=== PATIENT | female | born 1995 | race Caucasian/White ===

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

== ENCOUNTER 2017-05-11 21:57 | Emergency (ER) | payer BC, OTHER ==
--- NOTE | 2017-05-11 22:21 | ED Physician Documentation ---
PD HPI HEADACHE - Stated complaint Stated Complaint: MIGRAINE - Chief complaint Chief Complaint: Neuro - History obtained from History obtained from: Patient - History of Present Illness Timing - onset: How many days ago (6) Timing - onset during: Light activity Timing - duration: Days (6) Timing - details: Gradual onset Worst headache ever?: No: Worst headache ever? (she says she gets presumed migraines about twice per month for which she takes OTC meds and waits it out, with symptoms usually about a day. She says the current headache had onset like others, but has just lasted longer and now at 6 days.) Location: Front, Global Quality: Throbbing, Aching Associated symptoms: Nausea, Vomiting. No: Fever, Stiff neck, Weakness, Numbness, Vision changes Improved by: Rest. No: Meds Worsened by: Light, Noise Contributing factors: No: Possible carbon monoxide, Hypertension, Recent illness , Trauma Similar symptoms before: Diagnosis (presumed migraines) Review of Systems Constitutional: denies: Fever, Chills, Myalgias Nose: denies: Rhinorrhea / runny nose, Congestion Throat: denies: Sore throat Cardiac: denies: Chest pain / pressure Respiratory: denies: Cough GI: reports: Nausea, Vomiting. denies: Abdominal Pain, Constipation : denies: Dysuria, Frequency Skin: denies: Rash, Lesions Neurologic: denies: Focal weakness, Numbness, Near syncope PD PAST MEDICAL HISTORY - Past Medical History Cardiovascular: None Respiratory: None Neuro: None Endocrine/Autoimmune: None - Past Surgical History Past Surgical History: Yes HEENT: Myringotomy (tubes) - Present Medications Home Medications: Ambulatory Orders Medication Instructions Recorded Confirmed Bcp 07/18/16 Famotidine [Pepcid] 20 mg PO DAILY #20 tablet 07/18/16 Ondansetron Odt [Zofran] 4 mg TL Q6H PRN #10 tablet 07/18/16 Dexamethasone [Decadron] 4 mg PO DAILY #5 tablet 05/11/17 Promethazine [Phenergan] 25 mg PO Q6H PRN #20 tab 05/11/17 SUMAtriptan [Imitrex] 50 mg PO ONCE PRN #5 tablet 05/11/17 - Allergies Allergies/Adverse Reactions: Allergies Allergy/AdvReac Type Severity Reaction Status Date / Time No Known Drug Allergies Allergy Verified 05/11/17 22:06 - Social History Does the pt smoke?: No Smoking Status: Never smoker Does the pt drink ETOH?: No Does the pt have substance abuse?: No - Immunizations Immunizations are current?: Yes PD ED PE NORMAL - Vitals Vital signs reviewed: Yes - General General: Alert and oriented X 3, Well developed/nourished - HEENT HEENT: Atraumatic, PERRL (light sensitive. ), Ears normal, Pharynx benign. No: Moist mucous membranes - Neck Neck: Supple, no meningeal sign, No adenopathy - Cardiac Cardiac: RRR, No murmur - Respiratory Respiratory: Clear bilaterally - Abdomen Abdomen: Soft, Non tender - Derm Derm: Normal color, Warm and dry - Extremities Extremities: No tenderness to palpate, Normal ROM s pain - Neuro Neuro: Alert and oriented X 3, fishing captain 2-12 intact, No motor deficit, No sensory deficit, Normal speech, Other Results - Vitals Vitals: Vital Signs - 24 hr 05/11/17 05/11/17 22:03 23:55 Temperature 36.4 C L Heart Rate 87 77 Respiratory 18 18 Rate Blood Pressure 119/80 107/71 O2 Saturation 99 97 Oxygen O2 Source Room air PD MEDICAL DECISION MAKING - ED course Complexity details: re-evaluated patient (headache gone after IV fluids and meds , c/w migraine and dehydration. ), considered differential, d/w patient Departure - Departure Disposition: 01 Home, Self Care Clinical Impression: Headache Qualifiers: Headache type: other vascular headache Qualified Code(s): G44.1 - Vascular headache, not elsewhere classified Condition: Stable Record reviewed to determine appropriate education?: Yes Instructions: ED Headache Migraine Follow-Up: Angeles Muñiz PA-C [Primary Care Provider] - Prescriptions: Dexamethasone [Decadron] 4 mg PO DAILY #5 tablet Promethazine [Phenergan] 25 mg PO Q6H PRN #20 tab PRN Reason: Nausea / Vomiting SUMAtriptan [Imitrex] 50 mg PO ONCE PRN #5 tablet PRN Reason: Migraine Comments: Drink lots of fluids. Use promethazine if needed for nausea. Continue Decadron daily for 5 more days to try to prevent rebound of the migraine which can occur as medications wear off sometimes. For subsequent migraine type headaches, you can try the combination of an ibuprofen or aspirin along with the promethazine for nausea and an Imitrex tablet. See if these work for you to cease the headache within a half hour or so. Follow-up with your primary care. Discharge Date/Time: 05/11/17 23:59
[2017-05-11] MEDS ORDERED: DEXAMETHASONE 10 MG/ML VIAL IVP STA (22:34)
[2017-05-11] MEDS ORDERED: METOCLOPRAMIDE 10 MG/2 ML VIAL IVP STA (22:34)
[2017-05-11] MEDS ORDERED: KETOROLAC 60 MG/2 ML VIAL IVP STA (22:34)
[2017-05-11] MEDS ORDERED: diphenhydrAMINE INJ 50 MG/ML VIAL IVP STA (22:34)
[2017-05-11] MEDS ORDERED: ACETAMINOPHEN 1,000 MG/100 ML 100 ML IV STA (22:35)
[2017-05-11] MEDS ORDERED: SODIUM CHLORIDE 0.9% 1,000 ML IV ONE (22:36)
[2017-05-11 23:56] VITALS: BP 107/71
== END 2017-05-11 23:59 | disposition home or self-care (01) ==
LOC: ED 21:57
DX: G44.1 Vascular headache, not elsewhere classified (principal); R11.2 Nausea with vomiting, unspecified
CPT/HCPCS: 96365; 96375; 99283; J0131; J1200; J2765

== ENCOUNTER 2019-02-05 08:15 | Outpatient (CLI) | payer BC ==
[2019-02-05 20:43] LABS: CANDIDA GROUP DNA POSITIVE (NEGATIVE); CANDIDA KRUSEI DNA NEGATIVE (NEGATIVE); TRICHOMONAS VAGINALIS DNA NEGATIVE (NEGATIVE)
[2019-02-05 21:50] LABS: TRICHOMONAS VAGINALIS DNA NEGATIVE (NEGATIVE)
== END 2019-02-05 23:59 | disposition home or self-care (01) ==
LOC: LAB.R 08:15
PROVIDERS: ATTEND Nurse Practitioner Obstetrics & Gynecology
DX: Z11.3 Encounter for screening for infections with a predominantly sexual mode of transmission (principal); N76.0 Acute vaginitis
CPT/HCPCS: 87491; 87591; 87661; 87801

== ENCOUNTER 2019-05-06 12:08 | Outpatient (CLI) | payer BC ==
[2019-05-06 13:02] LABS: HCG,QUALITATIVE BLOOD NEGATIVE
== END 2019-05-06 12:09 | disposition home or self-care (01) ==
LOC: LAB 12:08
PROVIDERS: ATTEND Nurse Practitioner Family
DX: N93.9 Abnormal uterine and vaginal bleeding, unspecified (principal)
CPT/HCPCS: 36415; 84703

== ENCOUNTER 2019-05-26 11:10 | Emergency (ER) | payer BC ==
[2019-05-26 11:50] LABS: RAPID STREP SCREEN Negative (Negative)
--- NOTE | 2019-05-26 12:32 | ED Physician Documentation ---
PD HPI URI - Stated complaint Stated Complaint: SORE THROAT,RUNNY NOSE - Chief complaint Chief Complaint: Heent - History obtained from History obtained from: Patient - History of Present Illness Timing - onset: How many days ago (2-3) Timing duration: Days Timing details: Gradual onset Pain level max: 0 Pain level now: 0 Associated symptoms: Nasal congestion, Rhinorrhea, Sore throat, Dry cough (minimal). No: Fever Contributing factors: Sick contact (works at [employer]) Improves by: Rest Worsened by: Activity Recently seen: Not recently seen - Additional information Additional information: 23-year-old female states that she works at [employer]. She states that they told her to come to the emergency department and get a work note or else she would be fired for missing work. Review of Systems Constitutional: denies: Fever, Chills GI: denies: Vomiting : denies: Dysuria, Frequency, Hesitancy, Now EGA Skin: denies: Rash Musculoskeletal: denies: Neck pain, Back pain Neurologic: denies: Headache PD PAST MEDICAL HISTORY - Past Medical History Cardiovascular: None Respiratory: None Endocrine/Autoimmune: None - Past Surgical History Past Surgical History: Yes HEENT: Myringotomy (tubes) - Present Medications Home Medications: Ambulatory Orders Medication Instructions Recorded Confirmed Bcp 07/18/16 Famotidine [Pepcid] 20 mg PO DAILY #20 tablet 07/18/16 Ondansetron Odt [Zofran] 4 mg TL Q6H PRN #10 tablet 07/18/16 Promethazine [Phenergan] 25 mg PO Q6H PRN #20 tab 05/11/17 SUMAtriptan [Imitrex] 50 mg PO ONCE PRN #5 tablet 05/11/17 dexAMETHasone [Decadron] 4 mg PO DAILY #5 tablet 05/11/17 - Allergies Allergies/Adverse Reactions: Allergies Allergy/AdvReac Type Severity Reaction Status Date / Time No Known Drug Allergies Allergy Verified 05/26/19 11:24 - Social History Does the pt smoke?: No Smoking Status: Never smoker Does the pt drink ETOH?: No Does the pt have substance abuse?: No - Immunizations Immunizations are current?: Yes - POLST Patient has POLST: No PD ED PE NORMAL - Vitals Vital signs reviewed: Yes - General General: Alert and oriented X 3, No acute distress, Well developed/nourished - HEENT HEENT: Ears normal, Moist mucous membranes, Pharynx benign - Neck Neck: Supple, no meningeal sign, No adenopathy - Cardiac Cardiac: RRR - Respiratory Respiratory: No respiratory distress, Clear bilaterally - Abdomen Abdomen: Soft, Non tender, Non distended - Back Back: No CVA TTP - Derm Derm: Warm and dry - Extremities Extremities: No edema - Neuro Neuro: Alert and oriented X 3 - Psych Psych: Normal mood, Normal affect Results - Vitals Vitals: Vital Signs - 24 hr 05/26/19 11:24 Temperature 36.9 C Heart Rate 64 Respiratory 16 Rate Blood Pressure 124/69 O2 Saturation 99 Oxygen O2 Source Room air - Labs Labs: Laboratory Tests 05/26/19 11:30 Group A Strep Rapid Negative PD MEDICAL DECISION MAKING - ED course Complexity details: reviewed results, considered differential, d/w patient ED course: Patient is well-appearing, nontoxic. Afebrile. Negative strep test. No evidence of pneumonia. We will have her stay home until her symptoms have subsided. Patient counseled regarding signs and symptoms for which I believe and urgent re-evaluation would be necessary. Patient with good understanding of and agreement to plan and is comfortable going home at this time This document was made in part using voice recognition software. While efforts are made to proofread this document, sound alike and grammatical errors may occur. Departure - Departure Disposition: 01 Home, Self Care Clinical Impression: Viral URI Condition: Good Instructions: ED URI Viral Follow-Up: Medina Marin PA [Primary Care Provider] - As Needed Comments: Return if you worsen. Go home and rest. Forms: Activity restrictions
[2019-05-26 12:36] VITALS: BP 130/93
== END 2019-05-26 12:39 | disposition home or self-care (01) ==
LOC: ED 11:10
DX: J06.9 Acute upper respiratory infection, unspecified (principal)
CPT/HCPCS: 87070; 87430; 99282

== ENCOUNTER 2019-07-10 08:00 | Outpatient (CLI) | payer BC ==
[2019-07-10 21:05] LABS: CANDIDA GROUP DNA NEGATIVE (NEGATIVE); CANDIDA KRUSEI DNA NEGATIVE (NEGATIVE); TRICHOMONAS VAGINALIS DNA NEGATIVE (NEGATIVE)
[2019-07-10 21:39] LABS: TRICHOMONAS VAGINALIS DNA NEGATIVE (NEGATIVE)
== END 2019-07-10 08:01 | disposition home or self-care (01) ==
LOC: LAB.R 08:00
PROVIDERS: ATTEND Obstetrics & Gynecology
DX: N76.0 Acute vaginitis (principal); N93.9 Abnormal uterine and vaginal bleeding, unspecified
CPT/HCPCS: 36415; 81599; 84146; 84443; 86695; 86696; 87255; 87491; 87591; 87661; 87801

== ENCOUNTER 2019-07-10 08:00 | Outpatient (CLI) | payer BC ==
[2019-07-10 18:17] LABS: PROLACTIN 10.9 ng/mL
[2019-07-12 10:40] LABS: HSV 1 IGG TYPE SPECIFIC AB <0.90 index; HSV 2 IGG TYPE SPECIFIC AB <0.90 index
== END 2019-07-10 23:59 | disposition home or self-care (01) ==
LOC: LAB.WCP 08:00
PROVIDERS: ATTEND Obstetrics & Gynecology
DX: N93.9 Abnormal uterine and vaginal bleeding, unspecified (principal); N76.0 Acute vaginitis
CPT/HCPCS: 36415; 81599; 84146; 84443; 86695; 86696

== ENCOUNTER 2019-12-12 16:05 | Outpatient (CLI) | payer BC | END 2019-12-12 23:59 | disposition home or self-care (01) | LOC: LAB.WCP 16:05 | PROVIDERS: ATTEND Nurse Practitioner Obstetrics & Gynecology | DX: Z32.01 Encounter for pregnancy test, result positive (principal) | CPT/HCPCS: 36415; 84702 ==

== ENCOUNTER 2019-12-26 20:41 | Outpatient (CLI) | payer BC ==
--- NOTE | 2019-12-27 09:11 | Ultrasound Report ---
PROCEDURE: OB First Trimester INDICATIONS: PELVIC PAIN RT, TEST POSITIVE. HCG 500 OUTSIDE/PRIOR DATING DATA: Last menstrual period (LMP): Not available. LMP-based estimated date of delivery (BHASKAR): Not available. First dating scan (date and location): This study. Estimated gestational age) from first dating scan: A pole is not yet visualized. There is what appears to be a gestational sac, with a mean sac diameter of 7 mm which if this does in fact represen t a gestational sac would be correlated with the gestational age of 5 weeks 3 days, +/- 7 days.. TECHNIQUE: Real-time scanning was performed of the fetus and maternal pelvic organs, with image documentation. COMPARISON: None for this . FINDINGS: A small saclike structure is present within the endometrial canal, but a yolk sac and gest ational pole within is not seen. Therefore this does not definitely represent an intrauterine gestati on. If in fact it does represent a early intrauterine gestation that will progress over time the boone meter of this structure would correlate with a early first trimester gestation of only 5 weeks 3 days with a measurement variability of +/- 7 days. Embryo: Not seen. Measurement variability in dating: +/- 4 weeks by LMP, +/- 7 days by mean sac diameter (use before 6 weeks gestation if crown-rump length not able to be measured), +/- 5 days by crown-rump length (6-12 weeks gestation). Maternal organs: Ovaries normal. Limited images through the kidneys demonstrate no hydronephrosis. IMPRESSION: A definite viable intrauterine gestation is not yet established. A fluid-filled structure centrally w ithin the endometrial canal could represent a gestational sac and a very early phase of . Fo llow-up correlation with quantitative beta hCG is recommended. Follow-up OB ultrasound in 7-10 days w ould be recommended if there is evidence of a viable gestation. Reviewed by: Jean Marie Bustillo MD on 12/27/2019 9:10 AM PDT Approved by: Jean Marie Bustillo MD on 12/27/2019 9:10 AM PDT Station ID: [id number]
--- NOTE | 2019-12-27 09:15 | Ultrasound Report ---
PROCEDURE: OB Transvaginal INDICATIONS: RT PELVIC PAIN, + PREG TEST, HCG 500 TECHNIQUE: Both transabdominal and transvaginal scanning were performed. COMPARISON: None. FINDINGS: Please refer to the dedicated report under the title OB first trimester. IMPRESSION: The report for this examination is combined with the additional report from today, OB first trimester . Reviewed by: Jean Marie Bustillo MD on 12/27/2019 9:14 AM PDT Approved by: Jean Marie Bustillo MD on 12/27/2019 9:14 AM PDT Station ID: [id number]
== END 2019-12-26 20:42 | disposition home or self-care (01) ==
LOC: DI 20:41
PROVIDERS: ATTEND Physician Assistant
DX: R10.2 Pelvic and perineal pain (principal); Z32.01 Encounter for pregnancy test, result positive
CPT/HCPCS: 76801; 76817

== ENCOUNTER 2020-01-15 13:47 | Outpatient (CLI) | payer BC | END 2020-01-15 13:48 | disposition home or self-care (01) | LOC: LAB 13:47 | PROVIDERS: ATTEND Obstetrics & Gynecology | DX: O03.4 Incomplete spontaneous abortion without complication (principal); Z32.01 Encounter for pregnancy test, result positive | CPT/HCPCS: 36415; 84702; 86850; 86900; 86901 ==

== ENCOUNTER 2020-01-18 13:30 | Outpatient (CLI) | payer BC | END 2020-01-18 23:59 | disposition home or self-care (01) | LOC: LAB.WCP 13:30 | PROVIDERS: ATTEND Physician Assistant | DX: R10.2 Pelvic and perineal pain (principal); O03.9 Complete or unspecified spontaneous abortion without complication | CPT/HCPCS: 36415; 84702 ==

== ENCOUNTER 2020-01-29 14:59 | Outpatient (CLI) | payer BC | END 2020-01-29 15:00 | disposition home or self-care (01) | LOC: LAB 14:59 | PROVIDERS: ATTEND Obstetrics & Gynecology | DX: O03.4 Incomplete spontaneous abortion without complication (principal) | CPT/HCPCS: 36415; 84702 ==

== ENCOUNTER 2020-02-25 15:20 | Outpatient (CLI) | payer BC | END 2020-02-25 15:21 | disposition home or self-care (01) | LOC: LAB 15:20 | PROVIDERS: ATTEND Nurse Practitioner Obstetrics & Gynecology | DX: O03.4 Incomplete spontaneous abortion without complication (principal) | CPT/HCPCS: 36415; 84702 ==

== ENCOUNTER 2020-03-11 08:00 | Outpatient (CLI) | payer BC | END 2020-03-11 08:01 | disposition home or self-care (01) | LOC: LAB 08:00 | PROVIDERS: ATTEND Obstetrics & Gynecology | DX: O03.4 Incomplete spontaneous abortion without complication (principal) | CPT/HCPCS: 36415; 84702 ==

== ENCOUNTER 2020-03-21 08:00 | Outpatient (CLI) | payer BC ==
[2020-03-22 00:30] LABS: CANDIDA GROUP DNA POSITIVE (NEGATIVE); CANDIDA KRUSEI DNA NEGATIVE (NEGATIVE); TRICHOMONAS VAGINALIS DNA NEGATIVE (NEGATIVE)
== END 2020-03-21 23:59 | disposition home or self-care (01) ==
LOC: LAB.R 08:00
PROVIDERS: ATTEND Nurse Practitioner Obstetrics & Gynecology
DX: N76.0 Acute vaginitis (principal)
CPT/HCPCS: 87661; 87801

== ENCOUNTER 2020-08-21 07:00 | Outpatient (CLI) | payer BC ==
[2020-08-21 21:03] LABS: BACTERIAL VAGINOSIS DNA NEGATIVE (NEGATIVE); CANDIDA GLABRATA DNA NEGATIVE (NEGATIVE); CANDIDA GROUP DNA POSITIVE (NEGATIVE); CANDIDA KRUSEI DNA NEGATIVE (NEGATIVE); TRICHOMONAS VAGINALIS DNA NEGATIVE (NEGATIVE)
[2020-08-21 21:45] LABS: CHLAMYDIA TRACHOMATIS DNA NEGATIVE (NEGATIVE); NEISSERIA GONORRHOEAE DNA NEGATIVE (NEGATIVE); TRICHOMONAS VAGINALIS DNA NEGATIVE (NEGATIVE)
== END 2020-08-21 23:59 | disposition home or self-care (01) ==
LOC: LAB.N 07:00
PROVIDERS: ATTEND Physician Assistant Medical
DX: N76.0 Acute vaginitis (principal)
CPT/HCPCS: 87086; 87491; 87591; 87661; 87801

== ENCOUNTER 2020-09-23 16:42 | Outpatient (CLI) | payer BC ==
[2020-09-23 20:45] LABS: BASOPHILS # (AUTO) 0.1 10^3/uL (0.0-0.1); BASOPHILS % (AUTO) 0.8 %; EOSINOPHILS # (AUTO) 0.2 10^3/uL (0.0-0.7); EOSINOPHILS % (AUTO) 2.4 %; HGB - HEMOGLOBIN 14.2 g/dL (12.0-16.0); LYMPHOCYTES # (AUTO) 2.3 10^3/uL (1.5-3.5); LYMPHOCYTES % (AUTO) 25.9 %; MEAN CORPUSCULAR HEMOGLOBIN 32.3 pg (27.0-31.0); MEAN CORPUSCULAR HGB CONC 33.8 g/dL (32.0-36.0); MEAN CORPUSCULAR VOLUME 95.7 fL (81.0-99.0); MEAN PLATELET VOLUME 11.3 fL (7.9-10.8); MONOCYTES # (AUTO) 0.6 10^3/uL (0.0-1.0); MONOCYTES % (AUTO) 6.6 %; NEUTROPHILS # (AUTO) 5.7 10^3/uL (1.5-6.6); NEUTROPHILS % (AUTO) 63.7 %; PLT - PLATELET COUNT 222 10^3/uL (130-450); RED BLOOD COUNT 4.39 10^6/uL (4.20-5.40); RED CELL DISTRIBUTION WIDTH 12.1 % (12.0-15.0); WHITE BLOOD COUNT 8.9 x10^3/uL (4.8-10.8)
[2020-09-23 20:56] LABS: ALBUMIN 4.7 g/dL (3.2-5.5); ALBUMIN/GLOBULIN RATIO 1.7 (1.0-2.2); BILIRUBIN,TOTAL 0.4 mg/dL (0.2-1.0); CALCIUM 9.4 mg/dL (8.5-10.3); CREATININE 0.8 mg/dL (0.4-1.0); POTASSIUM 3.9 mmol/L (3.5-5.0); TOTAL PROTEIN 7.5 g/dL (6.7-8.2)
[2020-09-23 22:37] LABS: BACTERIAL VAGINOSIS DNA NEGATIVE (NEGATIVE); CANDIDA GLABRATA DNA NEGATIVE (NEGATIVE); CANDIDA GROUP DNA POSITIVE (NEGATIVE); CANDIDA KRUSEI DNA NEGATIVE (NEGATIVE); TRICHOMONAS VAGINALIS DNA NEGATIVE (NEGATIVE)
== END 2020-09-23 23:59 | disposition home or self-care (01) ==
LOC: LAB.N 16:42
PROVIDERS: ATTEND Nurse Practitioner
DX: N89.8 Other specified noninflammatory disorders of vagina (principal)
CPT/HCPCS: 36415; 80053; 85025; 87661; 87801

== ENCOUNTER 2020-11-21 08:00 | Outpatient (CLI) | payer BC ==
[2020-11-22 20:21] LABS: BACTERIAL VAGINOSIS DNA NEGATIVE (NEGATIVE); CANDIDA GLABRATA DNA NEGATIVE (NEGATIVE); CANDIDA GROUP DNA NEGATIVE (NEGATIVE); CANDIDA KRUSEI DNA NEGATIVE (NEGATIVE); TRICHOMONAS VAGINALIS DNA NEGATIVE (NEGATIVE)
== END 2020-11-21 23:59 | disposition home or self-care (01) ==
LOC: LAB.N 08:00
PROVIDERS: ATTEND Family Medicine
DX: N89.8 Other specified noninflammatory disorders of vagina (principal)
CPT/HCPCS: 87661; 87801

== ENCOUNTER 2021-01-29 13:08 | Outpatient (CLI) | payer BC ==
[2021-01-29 14:00] LABS: % IRON SATURATION 26 % (20-50); IRON 105 ug/dL (28-170); TOTAL IRON BINDING CAPACITY 398 ug/dL (250-450); TRANSFERRIN 284 mg/dL (192-382)
[2021-01-29 14:07] LABS: THYROID STIMULATING HORMONE 1.05 uIU/mL (0.34-5.60)
[2021-01-29 14:13] LABS: FERRITIN 60.1 ng/mL (11.0-306.8)
[2021-01-29 14:14] LABS: PROLACTIN 9.56 ng/mL
[2021-01-29 20:47] LABS: ESTIMATED AVERAGE GLUCOSE 91 mg/dL (70-100); HEMOGLOBIN A1c% 4.8 % (4.27-6.07)
[2021-01-30 03:51] LABS: ESTRADIOL 29 pg/mL
[2021-02-02 12:41] LABS: DHEA SULFATE 353 mcg/dL (18-391)
== END 2021-01-29 13:09 | disposition home or self-care (01) ==
LOC: LAB 13:08
PROVIDERS: ATTEND Obstetrics & Gynecology
DX: L65.9 Nonscarring hair loss, unspecified (principal); Z13.29 Encounter for screening for other suspected endocrine disorder; F52.22 Female sexual arousal disorder; F32.A Depression, unspecified; R53.83 Other fatigue; Z13.21 Encounter for screening for nutritional disorder; Z13.1 Encounter for screening for diabetes mellitus; N91.2 Amenorrhea, unspecified
CPT/HCPCS: 36415; 82306; 82627; 82670; 82728; 83036; 83540; 84146; 84403; 84439; 84443; 84466; 84702

== ENCOUNTER 2021-03-31 08:00 | Outpatient (CLI) | payer BC ==
[2021-03-31 22:44] LABS: BACTERIAL VAGINOSIS DNA NEGATIVE (NEGATIVE); CANDIDA GLABRATA DNA NEGATIVE (NEGATIVE); CANDIDA GROUP DNA POSITIVE (NEGATIVE); CANDIDA KRUSEI DNA NEGATIVE (NEGATIVE); TRICHOMONAS VAGINALIS DNA NEGATIVE (NEGATIVE)
== END 2021-03-31 23:59 | disposition home or self-care (01) ==
LOC: LAB.N 08:00
PROVIDERS: ATTEND Nurse Practitioner
DX: N89.8 Other specified noninflammatory disorders of vagina (principal)
CPT/HCPCS: 87661; 87801

== ENCOUNTER 2021-04-02 13:16 | Outpatient (CLI) | payer BC | END 2021-04-02 13:17 | disposition home or self-care (01) | LOC: LAB.S 13:16 | PROVIDERS: ATTEND Obstetrics & Gynecology | DX: N91.2 Amenorrhea, unspecified (principal) | CPT/HCPCS: 36415; 84702 ==

== ENCOUNTER 2021-04-06 13:32 | Outpatient (CLI) | payer BC | END 2021-04-06 13:33 | disposition home or self-care (01) | LOC: LAB 13:32 | PROVIDERS: ATTEND Obstetrics & Gynecology | DX: N91.2 Amenorrhea, unspecified (principal) | CPT/HCPCS: 36415; 84702 ==

== ENCOUNTER 2021-05-11 08:00 | Outpatient (CLI) | payer BC ==
[2021-05-11 22:28] LABS: BACTERIAL VAGINOSIS DNA NEGATIVE (NEGATIVE); CANDIDA GLABRATA DNA NEGATIVE (NEGATIVE); CANDIDA GROUP DNA POSITIVE (NEGATIVE); CANDIDA KRUSEI DNA NEGATIVE (NEGATIVE); TRICHOMONAS VAGINALIS DNA NEGATIVE (NEGATIVE)
== END 2021-05-11 23:59 ==
LOC: LAB.N 08:00
PROVIDERS: ATTEND Nurse Practitioner
DX: N89.8 Other specified noninflammatory disorders of vagina (principal)
CPT/HCPCS: 87661; 87801

== ENCOUNTER 2021-06-29 17:08 | Emergency (ER) | payer BC ==
--- OUTSIDE RECORDS SUMMARY | 2021-06-29 17:21 | EXTERNAL MEDICAL SUMMARY RPT | Continuity of Care Document ---
:1995 Author Organization [facility] Address [address] [place] [address] Phone Care Team Providers Name Role Phone Garde Unavailable Unavailable Miscellaneous Unavailable Unavailable Allergies No information. Encounters No information. Medications date description facility 20210611 Fluconazole 150 MG Oral Tablet [facility] 20210414 Omeprazole 20 MG Enteric Coated Tablet [facility] 20210414 Omeprazole 20 MG Enteric Coated Tablet [facility] 20210408 Ondansetron 4 MG Disintegrating Tablet [facility] 20210408 Ondansetron 4 MG Disintegrating Tablet [facility] Problems date description facility 20210507 Encounter for supervision of other norm al , [facility] first t 20210423 Encounter for supervision of other norm al , [facility] first t 20210423 8 weeks gestation of [facility] 20210401 Encounter for supervision of normal fir [facility] , [facility] unspeci 20210401 Amenorrhea, unspecified [facility] Procedures date description facility [id number] [facility] [id number] [facility] [id number] [facility] [id number] [facility] [id number] [facility] [id number] [facility] [id number] [facility] [id number] [facility] [id number] [facility] [id number] [facility] [id number] [facility] [id number] [facility] [id number] [facility] Results No information. Vital Signs date measurement value source 20210414 weight_standard 170 lb 20210414 weight_metric 77.11 kg 20210414 height_standard 67 in 20210414 height_metric 170.18 cm 20210414 BP_systolic 104 mm[Hg] 20210414 BP_diastolic 66 mm[Hg] 20210414 BMI 26.6 kg/m2 20210414 weight_standard 170 lb 20210414 weight_metric 77.11 kg 20210414 height_standard 67 in 20210414 height_metric 170.18 cm 20210414 BP_systolic 104 mm[Hg] 20210414 BP_diastolic 66 mm[Hg] 20210414 BMI 26.6 kg/m2 20210428 weight_standard 79.83 lb 20210428 weight_metric 36.21 kg 20210428 height_standard 67 in 20210428 height_metric 170.18 cm 20210428 BP_systolic 104 mm[Hg] 20210428 BP_diastolic 68 mm[Hg] 20210428 BMI 27.6 kg/m2 20210527 weight_standard 80.74 lb 20210527 weight_metric 36.62 kg 20210527 height_standard 67 in 20210527 height_metric 170.18 cm 20210527 BP_systolic 110 mm[Hg] 20210527 BP_diastolic 70 mm[Hg] 20210527 BMI 27.8 kg/m2 20210624 weight_standard 85.28 lb 20210624 weight_metric 38.68 kg 20210624 height_standard 67 in 20210624 height_metric 170.18 cm 20210624 BP_systolic 120 mm[Hg] 20210624 BP_diastolic 68 mm[Hg] 20210624 BMI 29.4 kg/m2
[2021-06-29] MEDS ORDERED: SODIUM CHLORIDE 0.9% 1,000 ML IV STA (18:53)
[2021-06-29 18:54] LABS: BILIRUBIN,URINE NEGATIVE (NEGATIVE); GLUCOSE, URINE (UA) NEGATIVE (NEGATIVE); KETONES,URINE (UA) NEGATIVE (NEGATIVE); LEUKOCYTE ESTERASE, URINE NEGATIVE (NEGATIVE); NITRITE,URINE NEGATIVE (NEGATIVE); OCCULT BLOOD,URINE NEGATIVE (NEGATIVE); PH,URINE 6.5 PH (5.0-7.5); PROTEIN,URINE NEGATIVE (NEGATIVE); UROBILINOGEN,URINE 0.2 (NORMAL) E.U./dL (NORMAL)
[2021-06-29 19:05] LABS: CLARITY,URINE HAZY (CLEAR)
[2021-06-29 19:14] LABS: BASOPHILS # (AUTO) 0.1 10^3/uL (0.0-0.1); BASOPHILS % (AUTO) 0.4 %; EOSINOPHILS # (AUTO) 0.3 10^3/uL (0.0-0.7); EOSINOPHILS % (AUTO) 1.8 %; HCT - HEMATOCRIT 38.1 % (37.0-47.0); HGB - HEMOGLOBIN 13.4 g/dL (12.0-16.0); LYMPHOCYTES # (AUTO) 3.1 10^3/uL (1.5-3.5); LYMPHOCYTES % (AUTO) 22.3 %; MEAN CORPUSCULAR HEMOGLOBIN 32.1 pg (27.0-31.0); MEAN CORPUSCULAR HGB CONC 35.2 g/dL (32.0-36.0); MEAN CORPUSCULAR VOLUME 91.1 fL (81.0-99.0); MEAN PLATELET VOLUME 10.2 fL (7.9-10.8); MONOCYTES # (AUTO) 0.9 10^3/uL (0.0-1.0); MONOCYTES % (AUTO) 6.8 %; NEUTROPHILS # (AUTO) 9.4 10^3/uL (1.5-6.6); PLT - PLATELET COUNT 219 10^3/uL (130-450); RED BLOOD COUNT 4.18 10^6/uL (4.20-5.40); RED CELL DISTRIBUTION WIDTH 13.1 % (12.0-15.0); WHITE BLOOD COUNT 13.8 x10^3/uL (4.8-10.8)
[2021-06-29 19:19] VITALS: BP 113/69
[2021-06-29 19:22] LABS: BACTERIA,URINE Moderate /HPF (None Seen); RBC,URINE 0-5 /HPF (0-5); SQUAMOUS EPITHELIAL CELL,UR MOD Squamous (<= Few)
[2021-06-29 19:25] LABS: ALBUMIN 3.3 g/dL (3.2-5.5); BILIRUBIN,TOTAL 0.4 mg/dL (0.2-1.0); CALCIUM 9.1 mg/dL (8.5-10.3); CREATININE 0.5 mg/dL (0.4-1.0); POTASSIUM 3.7 mmol/L (3.5-5.0); TOTAL PROTEIN 6.6 g/dL (6.7-8.2)
--- NOTE | 2021-06-29 19:41 | ED Physician Documentation ---
History of Present Illness - Stated complaint Stated Complaint: NAUSEA,CHILLS,BLURRED VISION - Chief complaint Chief Complaint: General - Additonal information Additional information: 25-year-old female who is approximately 18 weeks presents the emergency department for evaluation of a near syncopal episode that began this morning. She reports she had gotten up to go use the restroom. She began to feel as though her vision was going out in both eyes her knees buckled and she fell to the ground. She did not lose consciousness but did have a loss of vision in both eyes for about 10 to 15 seconds. Denies any headache nausea or vomiting. No diarrhea dysuria urgency or frequency. Denies any abdominal or pelvic pain vaginal bleeding cramping or loss of fluids. There is been no chest pain or shortness of air. No cough. No leg swelling. No recent travel. No personal history of DVT or cancer. She did speak with her OB providers and they advised ER follow-up. LMP mid January 2021 G2, . Followed by Dr. Barber at [facility] Review of Systems Constitutional: denies: Fever, Chills Eyes: reports: Loss of vision. denies: Decreased vision, Photophobia Ears: reports: Reviewed and negative Throat: reports: Reviewed and negative Cardiac: reports: Reviewed and negative Respiratory: reports: Reviewed and negative GI: reports: Nausea, Constipation. denies: Vomiting : reports: Reviewed and negative Skin: reports: Reviewed and negative Musculoskeletal: reports: Reviewed and negative Neurologic: reports: Near syncope. denies: Headache, Head injury, LOC Psychiatric: reports: Reviewed and negative PD PAST MEDICAL HISTORY - Past Medical History Past Medical History: Yes Cardiovascular: None Respiratory: None Endocrine/Autoimmune: None - Past Surgical History Past Surgical History: Yes HEENT: Myringotomy (tubes) - Present Medications Home Medications: Ambulatory Orders Medication Instructions Recorded Confirmed Bcp 07/18/16 Famotidine [Pepcid] 20 mg PO DAILY #20 tablet 07/18/16 Ondansetron Odt [Zofran] 4 mg TL Q6H PRN #10 tablet 07/18/16 Promethazine [Phenergan] 25 mg PO Q6H PRN #20 tab 05/11/17 SUMAtriptan [Imitrex] 50 mg PO ONCE PRN #5 tablet 05/11/17 dexAMETHasone [Decadron] 4 mg PO DAILY #5 tablet 05/11/17 cephALEXin [Keflex] 500 mg PO BID #14 cap 06/29/21 - Allergies Allergies/Adverse Reactions: Allergies Allergy/AdvReac Type Severity Reaction Status Date / Time escitalopram [From Lexapro] Allergy Unknown Verified 06/29/21 17:13 - Social History Does the pt smoke?: No Smoking Status: Never smoker Does the pt drink ETOH?: No Does the pt have substance abuse?: No - Immunizations Immunizations are current?: Yes - POLST Patient has POLST: No PD ED PE NORMAL - General General: Alert and oriented X 3, No acute distress, Well developed/nourished - HEENT HEENT: Atraumatic, Moist mucous membranes - Neck Neck: Supple, no meningeal sign, No adenopathy - Cardiac Cardiac: RRR, No murmur - Respiratory Respiratory: No respiratory distress - Abdomen Abdomen: Normal bowel sounds, Soft, Non tender, Other ( heart tones measured at 155 left lower quadrant) - Back Back: No CVA TTP, No spinal TTP - Derm Derm: Normal color, Warm and dry, No rash - Extremities Extremities: No deformity, No tenderness to palpate, Normal ROM s pain - Neuro Neuro: Alert and oriented X 3, missile mechanic 2-12 intact Eye Opening: Spontaneous Motor: Obeys Commands Verbal: Oriented GCS Score: 15 Results - Vitals Vitals: Vital Signs - 24 hr 06/29/21 06/29/21 17:11 19:13 Temperature 37 C Heart Rate 94 84 Respiratory 16 16 Rate Blood Pressure 125/76 113/69 O2 Saturation 98 98 Oxygen O2 Source Room air - EKG (time done) 1915 Rate: Rate (enter#) (81) Rhythm: NSR [place]: Normal Intervals: Normal DC QRS: Normal Ischemia: Normal ST segments Compare to prior EKG: Old EKG unavailable Computer interpretation: Agree with computer - Labs Labs: Laboratory Tests 06/29/21 06/29/21 06/29/21 18:40 19:03 19:03 WBC 13.8 H RBC 4.18 L Hgb 13.4 Hct 38.1 MCV 91.1 MCH 32.1 H MCHC 35.2 RDW 13.1 Plt Count 219 MPV 10.2 Neut # (Auto) 9.4 H Lymph # (Auto) 3.1 [place] # (Auto) 0.9 Eos # (Auto) 0.3 Baso # (Auto) 0.1 Absolute Nucleated RBC 0.00 Nucleated RBC % 0.0 Sodium 136 Potassium 3.7 Chloride 105 Carbon Dioxide 22 Anion Gap 9.0 BUN 11 Creatinine 0.5 Estimated GFR (MDRD) 153 Glucose 87 Calcium 9.1 Total Bilirubin 0.4 AST 17 ALT 15 Alkaline Phosphatase 47 Total Protein 6.6 L Albumin 3.3 Globulin 3.3 Albumin/Globulin Ratio 1.0 Lipase 62 H Urine Color YELLOW Urine Clarity HAZY Urine pH 6.5 Ur Specific [place] 1.020 Urine Protein NEGATIVE Urine Glucose (UA) NEGATIVE Urine Ketones NEGATIVE Urine Occult Blood NEGATIVE Urine Nitrite NEGATIVE Urine Bilirubin NEGATIVE Urine Urobilinogen 0.2 (NORMAL) Ur Leukocyte Esterase NEGATIVE Urine RBC 0-5 Urine WBC 4-5 Ur Squamous Epith Cells MOD Squamous H Urine Bacteria Moderate H Ur Microscopic Review INDICATED Urine Culture Comments NOT INDICATED SARS-CoV-2 (PCR) 06/29/21 19:03 WBC RBC Hgb Hct MCV MCH MCHC RDW Plt Count MPV Neut # (Auto) Lymph # (Auto) [place] # (Auto) Eos # (Auto) Baso # (Auto) Absolute Nucleated RBC Nucleated RBC % Sodium Potassium Chloride Carbon Dioxide Anion Gap BUN Creatinine Estimated GFR (MDRD) Glucose Calcium Total Bilirubin AST ALT Alkaline Phosphatase Total Protein Albumin Globulin Albumin/Globulin Ratio Lipase Urine Color Urine Clarity Urine pH Ur Specific [place] Urine Protein Urine Glucose (UA) Urine Ketones Urine Occult Blood Urine Nitrite Urine Bilirubin Urine Urobilinogen Ur Leukocyte Esterase Urine RBC Urine WBC Ur Squamous Epith Cells Urine Bacteria Ur Microscopic Review Urine Culture Comments SARS-CoV-2 (PCR) NOT DETECTED PD MEDICAL DECISION MAKING - ED course Complexity details: reviewed results, re-evaluated patient, d/w patient, d/w product/industry consultant ([place] (TYRON ayala)) ED course: 25-year-old female who is nearly 18 weeks presents the emergency department for evaluation of a near syncopal episode that began this morning. She did not have loss of consciousness but very briefly had loss of vision. She denies chest pain, shortness of air. Throughout most of the day however she is felt generally unwell and nauseated. No diarrhea dysuria. No pelvic pain loss of fluids or vaginal bleeding. Here in the emergency department heart tones easily obtained in the left lower quadrant. Screening labs showed an expected leukocytosis in . EKG was nonischemic. My suspicion for a pulmonary embolus is rather low. Patient was repleted with a liter of fluid here in the emergency department felt markedly better. I did discuss this ED visit with Dr. Don on-call for OB at [facility]. She would recommend continuing to treat the bacteriuria with Keflex. Patient is to follow-up with their OB clinic in the upcoming week. Otherwise emergent return precautions discussed Departure - Departure Disposition: Home, Self Care Clinical Impression: Near syncope, Second trimester , Bacteria in urine Condition: Stable Record reviewed to determine appropriate education?: Yes Instructions: ED Near Syncope Unkn Follow-Up: Sonali Barber MD [Primary Care Provider] - Prescriptions: cephALEXin [Keflex] 500 mg PO BID #14 cap Comments: You are seen today in the emergency department for a near fainting episode at home this morning. Your screening labs are as expected for . There is a small amount of bacteria in your urine. This is always treated in . I have sent a prescription for cephalexin to the [facility] in [place]. Please fill it and take twice daily. You are given some IV fluids here in the emergency department and we are screening you for COVID-19. We will have this result later this evening or tomorrow morning. We will call you only if the test is positive. In general stay well-hydrated and drink lots of fluids. If at any point you have further similar episodes have any lapse in consciousness, leg swelling or uncontrolled vomiting then please return immediately to the ER. Please discuss this ED visit with your OB providers. You should be seen sooner rather than later and follow-up at the clinic.
[2021-06-29] MEDS ORDERED: cephALEXin 250 MG CAPSULE PO STA (20:13)
== END 2021-06-29 20:27 | disposition home or self-care (01) ==
LOC: ED 17:08
DX: O28.8 Other abnormal findings on antenatal screening of mother (principal); Z3A.18 18 weeks gestation of pregnancy; Z20.822 Contact with and (suspected) exposure to COVID-19
CPT/HCPCS: 36415; 80053; 81001; 83690; 85025; 87635; 93005; 96360; 99283; A9270; 81003; 87086

== ENCOUNTER 2021-07-10 15:20 | Outpatient (CLI) | payer BC ==
[2021-07-10 22:45] LABS: BACTERIAL VAGINOSIS DNA NEGATIVE (NEGATIVE); CANDIDA GLABRATA DNA NEGATIVE (NEGATIVE); CANDIDA GROUP DNA POSITIVE (NEGATIVE); CANDIDA KRUSEI DNA NEGATIVE (NEGATIVE); TRICHOMONAS VAGINALIS DNA NEGATIVE (NEGATIVE)
[2021-07-10 23:48] LABS: CHLAMYDIA TRACHOMATIS DNA NEGATIVE (NEGATIVE); NEISSERIA GONORRHOEAE DNA NEGATIVE (NEGATIVE); TRICHOMONAS VAGINALIS DNA NEGATIVE (NEGATIVE)
== END 2021-07-10 23:59 | disposition home or self-care (01) ==
LOC: LAB.N 15:20
PROVIDERS: ATTEND Physician Assistant
DX: N89.8 Other specified noninflammatory disorders of vagina (principal)
CPT/HCPCS: 81514; 87491; 87591; 87661